=== PATIENT | female | born 1985 | race Caucasian/White ===

== ENCOUNTER 2017-03-17 19:16 | Emergency (ER) | payer MEDICAID, OTHER ==
[2017-03-17 19:16] VITALS: BMI 43.7
[2017-03-17 19:38] VITALS: TEMP 99
[2017-03-17] MEDS ORDERED: Naproxen 550 mg Tab PO STA (20:57)
[2017-03-17 22:26] VITALS: BP 119/90; PULSE 82; RESP 14; O2SAT 97
--- NOTE | 2017-03-17 22:27 | ED PDOC ---
Arrival/HPI - General Chief Complaint: Upper Extremity Problem/Injury Time Seen by Provider: 03/17/17 20:32 Historian: Patient - History of Present Illness Narrative History of Present Illness (Text): 03/17/17 23:02 Brittany Pedraza is a 31 year old female who presents to the emergency department complaining pain to left elbow, left ankle and bruising left 4th toe s/p tripping over her children's todays prior to arrival. Denies any head trauma or loss of consciousness. Denies any loss of sensation/weakness to extremity. Denies any fever, chills, vision changes, chest pain, shortness of breath, nausea, urinary incontinence, or any other complaints at this time. Time/Duration: Prior to Arrival Symptom Onset: Sudden Severity Level: Mild Context: Home Past Medical History - Provider Review Nursing Documentation Reviewed: Yes - Infectious Disease Hx of Infectious Diseases: None - Tetanus Immunization Tetanus Immunization: Unknown - Past Medical History Past Medical History: No Previous - Cardiac Hx Cardiac Disorders: No - Pulmonary Hx Respiratory Disorders: No - Neurological Hx Neurological Disorder: No - HEENT Hx HEENT Disorder: No - Renal Hx Renal Disorder: No - Endocrine/Metabolic Hx Endocrine Disorders: No - Hematological/Oncological Hx Blood Disorders: No - Integumentary Hx Dermatological Disorder: No - Musculoskeletal/Rheumatological Hx Musculoskeletal Disorders: No - Gastrointestinal Hx Gall Bladder Disease: Yes - Genitourinary/Gynecological Hx Genitourinary Disorders: No - Psychiatric Hx Psychophysiologic Disorder: No Hx Substance Use: No - Past Surgical History Past Surgical History: No Previous - Surgical History Hx Cholecystectomy: Yes - Anesthesia Hx Anesthesia: Yes - Suicidal Assessment Feels Threatened In Home Enviroment: No Family/Social History - Physician Review Nursing Documentation Reviewed: Yes Family/Social History: No Known Family HX Smoking Status: Never Smoked Hx Alcohol Use: No Hx Substance Use: No Hx Substance Use Treatment: No Allergies/Home Meds Allergies/Adverse Reactions: Allergies No Known Allergies Allergy (Verified 03/17/17 19:33) Review of Systems - Physician Review All systems were reviewed & negative as marked: Yes - Review of Systems Constitutional: Normal. absent: Fatigue, Fevers Respiratory: Normal. absent: SOB, Cough Genitourinary Female: absent: Dysuria, Frequency Musculoskeletal: Other (left elbow pain, left ankle, brusing to left 4th toe ) Neurological: absent: Headache, Dizziness Physical Exam Vital Signs Reviewed: Yes Vital Signs Temp Pulse Resp BP Pulse Ox 03/17/17 22:26 82 14 119/90 97 03/17/17 19:34 99.0 F 90 16 108/78 99 Temperature: Afebrile Blood Pressure: Normal Pulse: Regular Respiratory Rate: Normal Appearance: Positive for: Well-Appearing, Non-Toxic, Comfortable Pain Distress: None Mental Status: Positive for: Alert and Oriented X 3 - Systems Exam Head: Present: Atraumatic, Normocephalic Pupils: Present: PERRL Extroacular Muscles: Present: EOMI Conjunctiva: Present: Normal Mouth: Present: Moist Mucous Membranes Neck: Present: Normal Range of Motion. No: MIDLINE TENDERNESS, Paraspinal Tenderness Respiratory/Chest: Present: Clear to Auscultation, Good Air Exchange. No: Respiratory Distress, Accessory Muscle Use Cardiovascular: Present: Regular Rate and Rhythm, Normal S1, S2. No: Murmurs Abdomen: Present: Normal Bowel Sounds. No: Tenderness, Distention, Peritoneal Signs Back: Present: Normal Inspection. No: Midline Tenderness, Paraspinal Tenderness Upper Extremity: Present: Normal ROM, NORMAL PULSES, Tenderness (mild tenderness to medial aspect of left elbow. normal range of motion. sensation and motor intact ), Neurovascularly Intact. No: Cyanosis, Edema, Swelling, Erythema, Deformity Lower Extremity: Present: NORMAL PULSES, Normal ROM, Tenderness (tenderness to lateral aspect of left ankle. bruising to left 4th toe. Full range of motion. sensation and motor intact. ), Neurovascularly Intact, Capillary Refill < 2 s. No: Edema, CALF TENDERNESS, Swelling, Erythema, Deformity Neurological: Present: GCS=15, CN II-XII Intact, Speech Normal Skin: Present: Warm, Dry, Normal Color. No: Rashes Psychiatric: Present: Alert, Oriented x 3, Normal Insight, Normal Concentration Medical Decision Making ED Course and Treatment: Impression: A 31 year old female who presents to the emergency department complaining of pain to left elbow, ankle and left 4th toe bruising. Plan: -- Naproxen -- X-ray L.ankle, L.Elbow, L. Foot -- Reassess and disposition Progress Notes: XR L elbow: no fracture, no dislocation, as read by PA XR L ankle: no fracture, no dislocation, as read by PA XR L foot: old healed fracture to the distal fibula, no fracture, no dislocation , as read by PA Patient advised that official radiology read of XR is still pending and will call the patient if there is any discrepancy within 24 hours. X-rays negative for any acute fracture. Danny wrap applied to the L elbow and L ankle. Sling applied to the L arm. Patient notified of likely diagnosis of L elbow contusion, L ankle sprain and L 4th toe contusion. Advised to rest, ice and elevate affected joints. Patient is stable for discharge. Advised to follow up with PMD within few days, Rx provided to the patient for pain, and advised to return to the emergency department for any new/worsening symptoms. 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 Disposition/Present on Arrival - Present on Arrival Any Indicators Present on Arrival: No History of DVT/PE: No History of Uncontrolled Diabetes: No Urinary Catheter: No History of Decub. Ulcer: No History Surgical Site Infection Following: None - Disposition Have Diagnosis and Disposition been Completed?: Yes Diagnosis: Contusion of elbow, left, Left ankle sprain, Toe contusion Disposition: HOME/ ROUTINE Disposition Time: 22:00 Patient Plan: Discharge Condition: STABLE Discharge Instructions (ExitCare): Ankle Sprain (ED), Contusion in Adults (ED) Print Language: FAROESE Additional Instructions: Thank you for letting us take care of you today. You were treated for L elbow contusion, L ankle sprain, L 4th toe contusion. The emergency medical care you received today was directed at your acute symptoms. If you were prescribed any medication, please fill it and take as directed. It may take several days for your symptoms to resolve. Return to the Emergency Department if your symptoms worsen, do not improve, or if you have any other problems. Please contact your doctor in 2 days for re-evaluation and follow up / or call one of the physicians/clinics you have been referred to that are listed on the Patient Visit Information form that is included in your discharge packet. Bring any paperwork you were given at discharge with you along with any medications you are taking to your follow up visit. Our treatment cannot replace ongoing medical care by a primary care provider (PCP) outside of the emergency department. Thank you for allowing the [facility] team to be part of your care today. If you had an X-Ray : A Radiologist will review the ED reading if any change in treatment is needed we will contact you. Prescriptions: Naproxen 500 mg PO BID #30 tab [facility] - Follow up with primary Forms: [facility] ([place]), WORK NOTE
--- NOTE | 2017-03-18 08:58 | RAD ---
PROCEDURE: Radiographs of the left elbow. HISTORY: pain COMPARISON: No prior. FINDINGS: BONES: Normal. No fracture. JOINTS: Normal. No osteoarthritis. SOFT TISSUES: Normal. JOINT EFFUSION: None. OTHER FINDINGS: None IMPRESSION: Unremarkable radiographs of the left elbow.
--- NOTE | 2017-03-18 09:00 | RAD ---
PROCEDURE: Left Ankle Radiographs. HISTORY: pain COMPARISON: None FINDINGS: BONES: There is a chronic fracture deformity of the distal fibula. No acute fracture JOINTS: Normal. No osteoarthritis. Ankle mortise maintained. Talar dome intact SOFT TISSUES: Normal. OTHER FINDINGS: None. IMPRESSION: No acute findings
--- NOTE | 2017-03-18 09:01 | RAD ---
PROCEDURE: Left Foot Radiographs. HISTORY: pain COMPARISON: None. FINDINGS: BONES: Normal. No fracture. JOINTS: Normal. SOFT TISSUES: Normal. OTHER FINDINGS: None. IMPRESSION: Normal left foot radiographs.
== END 2017-03-17 22:40 | disposition home or self-care (01) ==
LOC: ED 19:16
DX: S50.02XA Contusion of left elbow, initial encounter (principal); S90.122A Contusion of left lesser toe(s) without damage to nail, initial encounter; S93.402A Sprain of unspecified ligament of left ankle, initial encounter; W01.0XXA Fall on same level from slipping, tripping and stumbling without subsequent striking against object, initial encounter; Y93.89 Activity, other specified; Y92.89 Other specified places as the place of occurrence of the external cause